=== PATIENT | male | born 1980 | race Caucasian/White ===

== ENCOUNTER 2023-08-17 20:11 | Emergency (ER) | payer OTHER ==
[~2023-08-17] VITALS: Ht 175.3 cm; Wt 104.8 kg
[2023-08-17] MEDS ORDERED: TETanus/Pertussis (Acell)/Diphther VAC/PF (Tdap-Adult) 0.5ml syringe IMVAC ONE (22:20)
[2023-08-17] MEDS ORDERED: bacitracin 15gm ointment TP ONE (22:20)
[2023-08-17] MEDS ORDERED: ondansetron 4mg rapidly disintigrating tab PO ONE (22:25)
[2023-08-17] MEDS ORDERED: sulfamethoxazole/trimethoprim DS (800/160mg) tablet PO ONE (22:25)
[2023-08-17] MEDS ORDERED: LidoCAINE 2% Topical Jelly 11mL syringe TOP ONE (22:25)
[2023-08-17] MEDS ORDERED: LIDOcaine 1%/PF 5ML 10 MG/ML VIAL IJ STA (22:43)
[2023-08-17] MEDS ORDERED: HYDR-3965 PO (23:43)
[2023-08-17] MEDS ORDERED: SULF1TAB49 PO (23:43)
[2023-08-17] MEDS ORDERED: HYDROcodone/acetaminophen 10/325mg tab PO ONE (23:45)
[2023-08-17 23:53] VITALS: BP 140/88; PULSE 79; RESP 16; TEMP 98; O2SAT 97
--- NOTE | 2023-08-18 00:08 | NUR ---
I have reviewed and agree with all interventions, assessments performed and documented by Mary OHARA.
== END 2023-08-17 23:56 | disposition home or self-care (01) ==
LOC: ER 20:11
DX: S61.512A Laceration without foreign body of left wrist, initial encounter (principal); Z98.890 Other specified postprocedural states; Z72.89 Other problems related to lifestyle; Z79.899 Other long term (current) drug therapy; Z23 Encounter for immunization; W31.2XXA Contact with powered woodworking and forming machines, initial encounter; Y93.89 Activity, other specified; Y92.89 Other specified places as the place of occurrence of the external cause; Y99.8 Other external cause status
CPT/HCPCS: 12002; 73140; 90471; 90715; 99284; A6449

== ENCOUNTER 2025-03-20 19:49 | Emergency (ER) | payer OTHER ==
[~2025-03-20] VITALS: Ht 172.7 cm; Wt 80.5 kg
[2025-03-20 19:59] VITALS: BP 136/92; PULSE 78; RESP 15; O2SAT 96
--- NOTE | 2025-03-20 21:16 | Physician Documentation ---
History of Present Illness ~ Chief Complaint: Bite-insect Stated Complaint: SPIDER BITE Time Seen by MD: 20:27 HPI Patient is seen today with complaints of bite with associated infection going up his right arm. Patient states he was just seen at a clinic today and got a dose of doxycycline 200 mg by mouth but they went to forklift picker the prescription and there was no prescription at the pharmacy. Patient denies any fevers or chills or chest pain or shortness of breath or nausea, vomiting, diarrhea or abdominal pain. They have no other concern or complaint at this time. Tetanus within 5 years?: Yes (AUG 2023) Medication Reconciliation Allergies: Coded Allergies: No Known Allergies (Unverified , 03/20/25) Past Medical History Past Medical History: Anxiety Past Surgical History: orthopedic surgeries, other Alcohol Use: Occasionally Drug Use: none Lives with: Spouse Lives In: Home Review of Systems Constitutional: Denies: chills, fever, weakness Eyes: Denies: pain, blurred vision ENT: Denies: ear pain, nose pain, throat pain, mouth pain Respiratory: Denies: cough, shortness of breath Cardiovascular: Denies: chest pain, palpitations Gastrointestinal: Denies: abdominal pain, nausea, vomiting Genitourinary: Denies: burning, dysuria Male Genitalia: Denies: penile discharge, testicular pain Neurological: Denies: headache, dizziness Musculoskeletal: Denies: pain, swelling Integumentary: Denies: rash, lesions Allergic/Immunologic: Denies: hives, itching Hematologic/Lymphatic: Denies: no symptoms reported Psychiatric: Denies: depression, anxiety Physical Exam Vital Signs: Temperature: 97.8, Source: Temporal, Heart Rate: 78, Respiratory Rate: 15, BP: 136/92, Pulse Oximetry: 96, Weight: 80.450 Physical Exam General: Awake and Alert, no acute distress. HEENT: Conjunctiva pink, Sclera clear, Mucus Membranes moist. Neck: Supple without masses and tenderness. Resp: Unlabored. Lungs clear to auscultation bilaterally. Heart: Regular Rate and rhythm, normal S1 and S2 without murmur, rub or gallop. Extremities: No cyanosis,clubbing or edema. Skin: Patient on exam does have skin lesion is erythematous and indurated measuring approximately 2-1/2 cm across on the volar ulnar aspect of his right distal forearm. There is tracking of erythema up proximally to about the antecubital fossa of the right arm. There is no purulent drainage from the centralized lesion at this time of the distal forearm. Progress Results/Orders Results/Orders Vital Signs 03/20/25 19:59 Temp 97.8 Pulse 78 Resp 15 B/P (MAP) 136/92 Pulse Ox 96 Medical Decision Making Findings Patient is seen today with complaints of bite with associated infection going up his right arm. Patient states he was just seen at a clinic today and got a dose of doxycycline 200 mg by mouth but they went to forklift picker the prescription and there was no prescription at the pharmacy. Patient denies any fevers or chills or chest pain or shortness of breath or nausea, vomiting, diarrhea or abdominal pain. They have no other concern or complaint at this time. Patient was given dose of Bactrim DS by mouth in the ED tonight and prescription for Bactrim DS one tab twice a day for 10 days sent to patient pharmacy. Patient will follow up with primary care in 2-5 days if no better as needed sooner. Return to ED with any worsening, concerning or changing symptoms. Departure Disposition: 01 HOME / SELF CARE / HOMELESS Impression: Primary Impression: Cellulitis Qualified Codes: L03.113 - Cellulitis of right upper limb Additional Impression: Insect bites Qualified Codes: S50.861A - Insect bite (nonvenomous) of right forearm, initial encounter; W57.XXXA - Bitten or stung by nonvenomous insect and other nonvenomous arthropods, initial encounter Condition: Stable Discharge Instructions: Cellulitis, Adult Additional Instructions: Patient was given dose of Bactrim DS by mouth in the ED tonight and prescription for Bactrim DS one tab twice a day for 10 days sent to patient pharmacy. Patient will follow up with primary care in 2-5 days if no better as needed sooner. Return to ED with any worsening, concerning or changing symptoms. Referrals: NO PRIMARY CARE PROVIDER (PCP) Prescriptions Sulfamethoxazole/Trimethoprim (Bactrim Ds Tablet) 800 Mg-160 Mg Tablet 1 TAB PO Q12H for 10 Days, #20 TAB Prov: EFRAÍN QUINTANA 03/20/25 Signature Scribe Signature: No scribe Attestation: No scribe EFRAÍN QUINTANA Mar 20, 2025 21:16
[2025-03-20] MEDS: sulfamethoxazole/trimethoprim DS (800/160mg) tablet PO STA (21:25)
[2025-03-20] MEDS ORDERED: SULF1TAB49 PO (21:26)
[2025-03-20 21:32] VITALS: TEMP 97.8
== END 2025-03-20 21:35 | disposition home or self-care (01) ==
LOC: ER 19:50
DX: S50.861A Insect bite (nonvenomous) of right forearm, initial encounter (principal); L03.113 Cellulitis of right upper limb; F41.9 Anxiety disorder, unspecified; W57.XXXA Bitten or stung by nonvenomous insect and other nonvenomous arthropods, initial encounter; Y93.89 Activity, other specified; Y92.89 Other specified places as the place of occurrence of the external cause; Y99.8 Other external cause status
CPT/HCPCS: 99283